=== PATIENT | male | born 1950 | race Caucasian/White ===

== ENCOUNTER 2020-11-07 08:45 | Outpatient (CLI) | payer MEDICARE, OTHER | END 2020-11-07 08:46 | disposition home or self-care (01) | LOC: CSHCT 08:45 | PROVIDERS: ATTEND Family Medicine | DX: R16.0 Hepatomegaly, not elsewhere classified (principal); N28.9 Disorder of kidney and ureter, unspecified; D18.03 Hemangioma of intra-abdominal structures; K76.89 Other specified diseases of liver; D35.02 Benign neoplasm of left adrenal gland; N28.1 Cyst of kidney, acquired | CPT/HCPCS: 74170 ==

== ENCOUNTER 2023-08-21 11:57 | Emergency (ER) | payer MEDICARE, OTHER | END 2023-08-21 13:50 | LOC: CSHERS 11:57 | DX: S52.572A Other intraarticular fracture of lower end of left radius, initial encounter for closed fracture (principal); I10 Essential (primary) hypertension; W01.0XXA Fall on same level from slipping, tripping and stumbling without subsequent striking against object, initial encounter; Y93.73 Activity, racquet and hand sports ==